=== PATIENT | female | born 2000 | race Caucasian/White ===

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

== ENCOUNTER 2020-08-04 01:35 | Emergency (ER) | payer OTHER ==
[~2020-08-04] VITALS: Ht 170.2 cm; Wt 68.0 kg
[~2020-08-04 01:35] MED LIST: CARAFATE 1 GM TA1 GM PO; DEPO-PROVE150 MG/11; PEPCID20 MG PO
[2020-08-04 01:54] LABS: URINE BILIRUBIN NEGATIVE (Negative); URINE BLOOD NEGATIVE (Negative); URINE CLARITY CLEAR; URINE COLOR YELLOW; URINE GLUCOSE-RANDOM NEGATIVE (Negative); URINE KETONES NEGATIVE (Negative); URINE LEUKOCYTES-REFLEX TRACE (Negative); URINE NITRITE-REFLEX NEGATIVE (Negative); URINE PROTEIN NEGATIVE (Negative); URINE SPECIFIC GRAVITY >= 1.030 (1.005-1.030); URINE UROBILINOGEN 0.2 E.U./dl (0.2-1.0)
[2020-08-04 02:26] LABS: CASTS None Seen /LPF (None Seen); MUCUS 4-6 Moderate strn/LPF (None Seen); SQUAMOUS >10 Many /LPF (0-3)
[2020-08-04 02:27] LABS: CRYSTALS None Seen /LPF (None Seen); URINE RBC None Seen /HPF (0-2); URINE WBC-REFLEX 6-15 Few /HPF (0-5)
[2020-08-04] MEDS ORDERED: CARAFATE 1 GM TA1 GM PO (03:09)
[2020-08-04 03:15] VITALS: BP 112/65
--- NOTE | 2020-08-04 09:36 | EKG ---
[place] [address] ELECTROCARDIOGRAM REPORT Name: ELPIDIORADHA IVIS Room: [facility]#: [id number] Admission: 08/04/20 Attend Phys: Discharge: 08/04/20 Date of : [birth year] Date of Service: 08/04/20149 Report #: [id number] THIS REPORT FOR: //name// [facility] ED Test Date: 2020-08-04 Test Time: 01:50:57 Pat Name: RADHA MAGALLANES Department: Room: Gender: Activities Director: : 2000 Requested By: Noemy Ferro Order Number: [id number] MD: Sarbjit Laboy Measurements Intervals [place] Rate: 72 P: -1 SC: 206 QRS: 66 QRSD: 71 T: 50 QT: 327 QTc: 358 Interpretive Statements Sinus rhythm Borderline prolonged SC interval No previous ECG available for comparison Electronically Signed On 08-04-2020 9:36:29 CHIEF MEDICAL DIRECTOR by Sarbjit Laboy [email or web address] <ELECTRONICALLY SIGNED> By: Sarjbit Laboy MD, [facility] 08/04/20935 9 9 Sarbjit Laboy MD, FACC /EPI
== END 2020-08-04 03:15 | disposition home or self-care (01) ==
LOC: M.ERS 01:35
PROVIDERS: Emergency Medicine
DX: K21.9 Gastro-esophageal reflux disease without esophagitis (principal)